=== PATIENT | male | born 1955 | race Caucasian/White ===

== ENCOUNTER 2018-10-29 19:48 | Emergency (ER) | payer OTHER ==
[2018-10-29] MEDS ORDERED: Hydrocortisone/Neomycin/Polymyxin B Ophth Susp 7.5 ML Bottle EYERT ONE (19:49)
--- NOTE | 2018-10-29 20:34 | EDM.PDOC ---
ED HPI GENERAL MEDICAL PROBLEM - General Chief Complaint: Eye Problems Stated Complaint: PINK EYE Time Seen by Provider: 10/29/18 20:29 Source of Information: Reports: Patient History Limitations: Reports: No Limitations - History of Present Illness INITIAL COMMENTS - FREE TEXT/NARRATIVE: Mike seen in room 202. He complains of pink eye,right since this morning.matted shut,constant purulent drainage. Associated with a 4 days h/o sore throat,runny nose and cough. No fever.Does not wear any contacts. No GIRALDO , vomiting or visual disturbance. ED ROS GENERAL - Review of Systems Review Of Systems: ROS reveals no pertinent complaints other than HPI. ED EXAM GENERAL W FULL EYE - Physical Exam Exam: See Below Exam Limited By: No Limitations General Appearance: Alert Eye Exam: Right Eye: Conjunctival Injection, Other (Purulent drainage), Bilateral Eye: EOMI Pupils: Normal Accommodation Pupillary Size: Bilateral: 4 mm Pupillary Reaction: Bilateral: Brisk Posterior Chamber: Bilateral: Unable to Examine Ears: Normal External Exam, Normal Canal, Hearing Grossly Normal, Normal TMs Nose: Clear Rhinorrhea Throat/Mouth: Inflammation Head: Atraumatic Neck: Normal Inspection Respiratory/Chest: No Respiratory Distress, Lungs Clear Neurological: Alert, Oriented Psychiatric: Normal Affect Course - Vital Signs Last Recorded V/S: Last Vital Signs Temp 98.8 F 10/29/18 19:50 Pulse 82 10/29/18 19:50 Resp 18 10/29/18 19:50 BP 128/62 10/29/18 19:50 Pulse Ox 97 10/29/18 19:50 Departure - Departure Time of Disposition: 20:33 Disposition: Home, Self-Care 01 Condition: Good Clinical Impression: URI (upper respiratory infection) Conjunctivitis Qualifiers: Acute conjunctivitis type: bacterial Laterality: right - Discharge Information Instructions: Bacterial Conjunctivitis, Hydrocortisone; Neomycin; Polymyxin B eye suspension Referrals: PCP,None [Primary Care Provider] - (PRN) Forms: ED Department Discharge Additional Instructions: Cortisporin gtts: 1 drop to rt eye, 2-3 times a day. Follow up as needed. Tylenol or Ibuprofen for pain as needed. Care Plan Goals: Cortisporin eye drops to the right - Problem List & Annotations (1) URI (upper respiratory infection) SNOMED Code(s): 58830672 Code(s): J06.9 - ACUTE UPPER RESPIRATORY INFECTION, UNSPECIFIED Status: Acute Qualifiers: URI type: unspecified viral URI Qualified Code(s): J06.9 - Acute upper respiratory infection, unspecified (2) Conjunctivitis SNOMED Code(s): 8780515 Code(s): H10.9 - UNSPECIFIED CONJUNCTIVITIS Status: Acute Qualifiers: Acute conjunctivitis type: bacterial Laterality: right - Problem List Review Problem List Initiated/Reviewed/Updated: Yes - Assessment/Plan Plan: Cortisporin eye drops.Supportive therapy for URI
== END 2018-10-29 20:48 | disposition home or self-care (01) ==
LOC: FB.ED 19:48
DX: J06.9 Acute upper respiratory infection, unspecified (principal); H10.89 Other conjunctivitis
CPT/HCPCS: 99282; A9270-GY